=== PATIENT | male | born 2000 | race Caucasian/White ===

== ENCOUNTER 2022-03-06 13:56 | Inpatient (IN) | payer BC, OTHER ==
[~2022-03-06] VITALS: Ht 172.7 cm; Wt 72.0 kg
[2022-03-06] MEDS ORDERED: LORazepam 2 MG/ML VIAL IV STA (14:55)
[2022-03-06] MEDS ORDERED: LACOSAMIDE 10MG/ML 20ML VIAL (VIMPAT) IV STA (14:59)
[2022-03-06 15:16] LABS: BASO # 0.1 10^3/uL (0.0-0.2); BASO % 0.4 % (0.0-1.0); EOS % 0.1 % (0.0-3.0); LYMPH # 3.4 10^3/uL (1.5-5.0); LYMPH % 15.4 % (24.0-44.0); MEAN CORPUSCULAR HEMOGLOBIN 29.8 pg (27.0-33.0); MEAN CORPUSCULAR HGB CONC 32.7 g/dl (32.0-36.5); MEAN CORPUSCULAR VOLUME 91.1 fl (80.0-96.0); MONO # 1.1 10^3/uL (0.0-0.8); MONO % 5.1 % (2.0-8.0); NEUTROPHILS # 17.4 10^3/uL (1.5-8.5); NEUTROPHILS % 77.6 % (36.0-66.0); PLATELET COUNT, AUTOMATED 284 10^3/uL (150-450); RED BLOOD COUNT 5.71 10^6/uL (4.30-6.10); WHITE BLOOD COUNT 22.4 10^3/uL (4.0-10.0)
[2022-03-06] MEDS ORDERED: NS 1,000 ML IV ONE (15:20)
[2022-03-06 15:46] LABS: AMPHETAMINES LEVEL URINE NEGATIVE (NEGATIVE); BARBITURATES URINE NEGATIVE (NEGATIVE); BENZODIAZEPINES URINE NEGATIVE (NEGATIVE); CANNABINOIDS URINE NEGATIVE (NEGATIVE); COCAINE METABOLITE URINE NEGATIVE (NEGATIVE); METHADONE URINE NEGATIVE (NEGATIVE); OPIATES URINE NEGATIVE (NEGATIVE); PHENCYCLIDINE URINE NEGATIVE (NEGATIVE)
[2022-03-06] MEDS ORDERED: LACO100T PO (16:05)
[2022-03-06 16:08] LABS: ALBUMIN 4.5 GM/DL (3.2-5.2); ALT/SGPT 35 U/L (12-78); BILIRUBIN,DIRECT < 0.1 MG/DL (0.0-0.2); BILIRUBIN,TOTAL 0.3 MG/DL (0.2-1.0); BLOOD UREA NITROGEN 17 MG/DL (7-18); CALCIUM LEVEL 9.7 MG/DL (8.5-10.1); CARBON DIOXIDE LEVEL 13 MEQ/L (21-32); CHLORIDE LEVEL 110 MEQ/L (98-107); CREATININE FOR GFR 1.54 MG/DL (0.70-1.30); ETHYL ALCOHOL (ETHANOL) < 0.003 % (0.000-0.010); GLUCOSE, FASTING 113 MG/DL (70-100); MAGNESIUM LEVEL 2.8 MG/DL (1.8-2.4); POTASSIUM SERUM 4.3 MEQ/L (3.5-5.1); SODIUM LEVEL 142 MEQ/L (136-145); THYROID STIMULATING HORMONE 0.858 uIU/ML (0.463-3.98); TOTAL PROTEIN 8.4 GM/DL (6.4-8.2)
[2022-03-06] MEDS ORDERED: NS 1,180 ML in IV 1 EA IV ONE (16:10)
[2022-03-06 16:58] LABS: RSV AMPLIFICATION NEGATIVE (NEGATIVE)
[2022-03-06] MEDS ORDERED: ZINC1TAB2 PO (18:57)
[2022-03-06] MEDS ORDERED: magnesium taurate (18:57)
[2022-03-06] MEDS ORDERED: L-AR1000 PO (18:58)
[2022-03-06] MEDS ORDERED: HOME MED LIST COMPLETE! XX SCH (19:00)
[2022-03-06] MEDS ORDERED: MOM 30ML SUSPENSION UDC PO PRN (20:15)
[2022-03-06] MEDS ORDERED: ACETAMINOPHEN TAB 650MG DOSE (2X325MG) PO PRN (20:15)
[2022-03-06] MEDS ORDERED: MAALOX 30 ML SUSP *UDC PO PRN (20:15)
[2022-03-06] MEDS: LACOSAMIDE 50 MG TAB (VIMPAT) PO SCH (21:00)
[2022-03-06] MEDS ORDERED: LORazepam 2 MG/ML VIAL IV PRN (21:55)
[2022-03-06 22:00] VITALS: BP 165/94
[2022-03-06] MEDS: NS 1,000 ML IV SCH (22:13)
[2022-03-06 22:30] VITALS: BP 165/92
[2022-03-06 23:00] VITALS: BP 165/94
[2022-03-07] VITALS (8 sets, daily range): BP systolic 102–160; BP diastolic 53–90
[2022-03-07] MEDS: NS 1,000 ML IV SCH (05:33)
[2022-03-07] MEDS ORDERED: HEPARIN SOD (PORCINE) 5000UNITS/ML 1ML VIAL/SYRINGE SQ SCH (06:00)
[2022-03-07 07:19] LABS: BASO % 0.1 % (0.0-1.0); EOS # 0.1 10^3/uL (0.0-0.5); HEMATOCRIT 38.5 % (42.0-52.0); LYMPH % 23.6 % (24.0-44.0); MEAN CORPUSCULAR HEMOGLOBIN 29.6 pg (27.0-33.0); MEAN CORPUSCULAR HGB CONC 34.5 g/dl (32.0-36.5); MEAN CORPUSCULAR VOLUME 85.6 fl (80.0-96.0); MONO # 0.9 10^3/uL (0.0-0.8); MONO % 10.2 % (2.0-8.0); NEUTROPHILS # 5.5 10^3/uL (1.5-8.5); NEUTROPHILS % 64.7 % (36.0-66.0); WHITE BLOOD COUNT 8.4 10^3/uL (4.0-10.0)
[2022-03-07 07:30] LABS: HEMOGLOBIN 13.3 g/dl (13.5-17.5); PLATELET COUNT, AUTOMATED 168 10^3/uL (150-450)
[2022-03-07 07:59] LABS: ALBUMIN 3.3 GM/DL (3.2-5.2); ALT/SGPT 26 U/L (12-78); BILIRUBIN,TOTAL 0.5 MG/DL (0.2-1.0); BLOOD UREA NITROGEN 10 MG/DL (7-18); CALCIUM LEVEL 8.6 MG/DL (8.5-10.1); CARBON DIOXIDE LEVEL 24 MEQ/L (21-32); CHLORIDE LEVEL 113 MEQ/L (98-107); CREATININE FOR GFR 1.02 MG/DL (0.70-1.30); GLUCOSE, FASTING 86 MG/DL (70-100); MAGNESIUM LEVEL 2.2 MG/DL (1.8-2.4); POTASSIUM SERUM 3.8 MEQ/L (3.5-5.1); SODIUM LEVEL 142 MEQ/L (136-145)
[2022-03-07] MEDS: LACOSAMIDE 50 MG TAB (VIMPAT) PO SCH (08:53)
[2022-03-07] MEDS ORDERED: ENOXAPARIN 40MG/0.4ML SYRINGE (J1650 PER 10MG) SC SCH (09:00)
[2022-03-07] MEDS ORDERED: VIMP50TA3 PO (12:08)
[2022-03-07] MEDS ORDERED: VIMP150T PO (12:14)
[2022-03-07] MEDS ORDERED: VIMP100T PO (14:14)
== END 2022-03-07 14:26 | disposition home or self-care (01) | DRG 53 ==
LOC: EDBD 13:56 → M ED 13:56 → M ED INP 20:15 → M ICU 21:44
PROVIDERS: ADMIT Family Medicine; ATTEND Family Medicine
DX: G40.909 Epilepsy, unspecified, not intractable, without status epilepticus (principal); E87.2 Acidosis; Z91.14 Patient's other noncompliance with medication regimen; Z20.822 Contact with and (suspected) exposure to COVID-19; Z79.899 Other long term (current) drug therapy; E86.0 Dehydration; N17.9 Acute kidney failure, unspecified